=== PATIENT | male | born 1975 | race Caucasian/White ===

== ENCOUNTER 2023-09-15 01:53 | Emergency (ER) | payer OTHER ==
[~2023-09-15] VITALS: Ht 172.7 cm; Wt 104.3 kg
[2023-09-15 02:06] VITALS: BP_SYST 152; PULSE 88; RESP 20; TEMP 98.2; O2SAT 95
[2023-09-15] MEDS: KETOROLAC TROMETHAMINE 30 MG VIAL IM ONE (02:47)
[2023-09-15 03:11] VITALS: BP_SYST 152; PULSE 77; RESP 20; TEMP 98.2; O2SAT 98
== END 2023-09-15 03:11 | disposition home or self-care (01) ==
LOC: SED 01:53
DX: S63.591A Other specified sprain of right wrist, initial encounter (principal); S40.022A Contusion of left upper arm, initial encounter; Z88.0 Allergy status to penicillin; V89.2XXA Person injured in unspecified motor-vehicle accident, traffic, initial encounter; Y93.89 Activity, other specified; Y92.89 Other specified places as the place of occurrence of the external cause; Y99.8 Other external cause status
CPT/HCPCS: 99284; 73060; 73110; 96372; J1885